=== PATIENT | female | born 1980 | race Caucasian/White ===

== ENCOUNTER → 2018-12-01 | Outpatient (CLI) | payer BC ==
--- NOTE | 2018-12-01 08:29 | MM ---
Reason for exam: screening (asymptomatic). Baseline mammogram. History: Family history of breast cancer in paternal grandmother at age 50 and breast cancer in maternal aunt at age 45. Took hormonal contraceptives for 3 years. Physical Findings: Nurse did not find any significant physical abnormalities on exam. MG 3D Screening Mammo W/Cad Bilateral CC and MLO view(s) were taken. The breast tissue is extremely dense which could obscure a lesion on mammography. There is a 3mm group of calcifications in the retroareolar left breast. ASSESSMENT: Incomplete: need additional imaging evaluation, BI-RAD 0 RECOMMENDATION: Special view mammogram of the left breast. [facility] will attempt to contact patient to return for supplemental views.
--- NOTE | 2018-12-02 11:15 | MM ---
Reason for exam: additional evaluation requested from abnormal screening. History: Family history of breast cancer in paternal grandmother at age 50 and breast cancer in maternal aunt at age 45. Took hormonal contraceptives for 3 years. Physical Findings: Breast exam preformed at baseline screening. MG 3D Work Up W/Cad LT CC with magnification, ML with magnification, and ML view(s) were taken of the left breast. The breast tissue is extremely dense which could obscure a lesion on mammography. There are only 3 round left retroareolar calcifications that appear within the skin surface on magnification ML view. These results were verbally communicated with the patient and result sheet given to the patient on 12/01/18. ASSESSMENT: Benign, BI-RAD 2 RECOMMENDATION: Routine screening mammogram of both breasts in 1 year.
== END | disposition home or self-care (01) ==
LOC: RADMAMWWP 06:52
PROVIDERS: ATTEND Obstetrics & Gynecology Obstetrics
DX: Z12.31 Encounter for screening mammogram for malignant neoplasm of breast (principal); R92.8 Other abnormal and inconclusive findings on diagnostic imaging of breast; Z80.3 Family history of malignant neoplasm of breast
CPT/HCPCS: 77061; 77063; 77065; 77067

== ENCOUNTER 2019-07-07 21:24 | Emergency (ER) | payer OTHER, BC ==
[2019-07-07 22:09] VITALS: BP 134/90; PULSE 60; RESP 17; TEMP 97.9
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
[2019-07-09 14:53] LABS: Hepatitis B Surface Antigen Non-Reactive
[2019-07-09 14:58] LABS: Hepatitis B Surface AB- Quant 98.9 mIU/mL
[2019-07-09 15:05] LABS: Hepatitis C IgG Antibody Non-Reactive
[2019-07-11 08:07] LABS: HIV 1 AB Non-Reactive; HIV 2 AB Non-Reactive; HIV AB P24 Non-Reactive; HIV P24 AG Non-Reactive
== END 2019-07-07 23:20 | disposition home or self-care (01) ==
LOC: EC 21:24
DX: Z77.21 Contact with and (suspected) exposure to potentially hazardous body fluids (principal); Z88.1 Allergy status to other antibiotic agents
CPT/HCPCS: 36415; 86706; 86803; 87340; 87390; 99283

== ENCOUNTER → 2019-12-29 | Outpatient (CLI) | payer BC ==
--- NOTE | 2020-01-01 11:44 | MM ---
Reason for exam: screening (asymptomatic). Last mammogram was performed 1 year and 1 month ago. History: Patient is nulliparous. Family history of breast cancer in paternal grandmother at age 50 and breast cancer in maternal aunt at age 45. Took hormonal contraceptives for 3 years. Physical Findings: A clinical breast exam by your physician is recommended on an annual basis and results should be correlated with mammographic findings. MG 3D Screening Mammo W/Cad Bilateral CC and MLO view(s) were taken. Prior study comparison: December 01, 2018, left breast MG 3d work up w/cad LT. December 01, 2018, bilateral MG 3d screening mammo w/cad. No suspicious abnormality in the right breast. Left upper outer quadrant focal asymmetry. ASSESSMENT: Incomplete: need additional imaging evaluation, BI-RAD 0 RECOMMENDATION: Special view mammogram of the left breast. If lesion persists on supplemental views, image directed ultrasound is recommended. [facility] will attempt to contact patient to return for supplemental views and ultrasound if indicated.
== END | disposition home or self-care (01) ==
LOC: RADMAMWWP 09:46
PROVIDERS: ATTEND Obstetrics & Gynecology Obstetrics
DX: Z12.31 Encounter for screening mammogram for malignant neoplasm of breast (principal); Z80.3 Family history of malignant neoplasm of breast
CPT/HCPCS: 77063; 77067

== ENCOUNTER → 2020-01-12 | Outpatient (CLI) | payer BC ==
--- NOTE | 2020-01-15 11:30 | MM ---
Reason for exam: additional evaluation requested from abnormal screening. Last mammogram was performed less than 1 month ago. History: Patient is nulliparous. Family history of breast cancer in paternal grandmother at age 50 and breast cancer in maternal aunt at age 45. Took hormonal contraceptives for 3 years. Physical Findings: Nurse did not find any significant physical abnormalities on exam. MG 3D Work Up W/Cad LT Spot compression CC, spot compression MLO, and LM view(s) were taken of the left breast. Prior study comparison: December 29, 2019, bilateral MG 3d screening mammo w/cad. December 01, 2018, left breast MG 3d work up w/cad LT. The breast tissue is heterogeneously dense. This may lower the sensitivity of mammography. Left upper outer quadrant 7mm mass persists as well as a more medial area of distortion (still within the lateral breast), 7.5cm from nipple. These results were verbally communicated with the patient and result sheet given to the patient on 01/12/20. ASSESSMENT: Incomplete: need additional imaging evaluation, BI-RAD 0 RECOMMENDATION: Ultrasound of the left breast. (lateral)
--- NOTE | 2020-01-15 11:35 | USB ---
Reason for exam: additional evaluation requested from abnormal screening. History: Patient is nulliparous. Family history of breast cancer in paternal grandmother at age 50 and breast cancer in maternal aunt at age 45. Took hormonal contraceptives for 3 years. US Breast Workup Limited LT Left limited breast ultrasound including focal area of concern, retroareolar and axilla demonstrates a 0.5 x 0.6 x 0.4cm oval, cystic lesion at 1 o'clock, a 0.8 x 0.3 x 0.3cm oval, complex, cystic cluster at 1 o'clock, a 0.4 x 0.4 x 0.3cm oval, cystic cluster at 1 o'clock, a 0.3 x 0.3 x 0.3cm oval, hypoechoic small complicated cyst with enhancement at 1 o'clock, a 0.6 x 0.3 x 0.2cm oval, cystic cluster at 2 o'clock and a 0.3 x 0.4 x 0.3cm oval, cystic lesion at 3 o'clock. All benign. These results were verbally communicated with the patient and result sheet given to the patient on 01/12/20. ASSESSMENT: Suspicious, BI-RAD 4 (on mammogram) RECOMMENDATION: Stereotactic core biopsy of the left breast. (3D Biopsy) 1-2 sites, re-evaluate day of biopsy. Called Dr. Erwin's office with mammographic findings. PRELIMINARY REPORT CALLED AND FAXED TO DR. ERWIN ON 01/15/20.
== END | disposition home or self-care (01) ==
LOC: RADMAMWWP 14:10
PROVIDERS: ATTEND Obstetrics & Gynecology Obstetrics
DX: R92.8 Other abnormal and inconclusive findings on diagnostic imaging of breast (principal)
CPT/HCPCS: 77061; 77065

== ENCOUNTER 2020-08-04 14:37 | Emergency (ER) | payer BC ==
[2020-08-04 14:42] VITALS: RESP 18
[2020-08-04] MEDS ORDERED: IBUPROFEN 600 MG TAB PO STA (15:08)
--- NOTE | 2020-08-04 15:18 | ED ---
General Adult HPI - General Chief complaint: Extremity Injury, Lower Stated complaint: foot injury from horse Time Seen by Provider: 08/04/20 14:56 Source: patient, RN notes reviewed, old records reviewed Mode of arrival: ambulatory Limitations: no limitations - History of Present Illness Initial comments: 39-year-old female patient with Edel chief complaint left foot injury. Patient reports that she was wearing sandals at 1500 pound horse stepped on her foot. Patient is having pain in her fifth metatarsal region. Denies any other acute complaints. Systemic: Pt denies fatigue, fever/chills, rash. Pt denies weakness, night sweats, weight loss. Neuro: Pt denies headache, visual disturbances, syncope or pre-syncope. HEENT: Pt denies ocular discharge or irritation, otalgia, rhinorrhea, pharyngitis or notable lymphadenopathy. Cardiopulmonary: Pt denies chest pain, SOB, heart palpitations, dyspnea on exertion. Abdominal/GI: Pt denies abdominal pain, n/v/d. : Pt denies dysuria, burning w/ urination, frequency/urgency. Denies new onset urinary or bowel incontinence. MSK: Pt denies loss of strength or function in extremities. Neuro: Pt denies new onset weakness, paresthesias. - Related Data Home Medications Medication Instructions Recorded Confirmed No Known Home Medications 09/29/14 07/07/19 Allergies Allergy/AdvReac Type Severity Reaction Status Date / Time cephalexin monohydrate Allergy Swelling Verified 08/04/20 14:42 [From Keflex] Review of Systems ROS Statement: Those systems with pertinent positive or pertinent negative responses have been documented in the HPI. ROS Other: All systems not noted in ROS Statement are negative. Past Medical History Past Medical History: No Reported History History of Any Multi-Drug Resistant Organisms: None Reported Past Surgical History: No Surgical Hx Reported Past Psychological History: No Psychological Hx Reported Smoking Status: Never smoker Past Alcohol Use History: Occasional Past Drug Use History: None Reported General Exam - General Exam Comments Initial Comments: Constitutional: NAD, AOX3, Pt has pleasant affect. HEENT: NC/AT, trachea midline, neck supple, no lymphadenopathy. External ears appear normal, without discharge. Mucous membranes moist. Eyes PERRLA, EOM intact. There is no scleral icterus. No pallor noted. Cardiopulmonary: RRR, no murmurs, rubs or gallops, no JVD noted. Lungs CTAB in anterior and posterior christianson. No peripheral edema. Neuro: CN II-XII grossly intact. No nuchal rigidity. MSK: No posterior calf tenderness bilaterally, homans sign negative bilaterally. Posterior tibialis and radial pulse +2 bilaterally. Sensation intact in upper and lower extremities. mild tenderness 4th/fifth metatarsal region right side. small ecchymoses noted. No midfoot tenderness. Neurovascularly intact. Full active ROM in upper and lower extremities. Limitations: no limitations Course Vital Signs 08/04/20 14:39 Temperature 98.6 F Pulse Rate 83 Respiratory 18 Rate Blood Pressure 132/94 O2 Sat by Pulse 100 Oximetry Medical Decision Making - Medical Decision Making 39-year-old female patient presents to ED for evaluation of right foot injury after a horse stepped on her briefly only for about a second. Patient is ambulatory without difficulty. Plain films are negative for acute pathology. Patient will be discharged with follow-up with primary care provider or any worsening symptoms. Disposition Clinical Impression: Foot sprain Disposition: HOME SELF-CARE Condition: Stable Instructions (If sedation given, give patient instructions): Foot Sprain (ED) Additional Instructions: Follow up with PCP tomorrow. You may bear weight as tolerated. If you are having a lot of discomfort I recommend using crutches and following up with PCP or orthopedic consult for re-evaluation. Is patient prescribed a controlled substance at d/c from ED?: No Referrals: Elli Domingo MD [Primary Care Provider] - 1-2 days Akin Reynolds MD [STAFF PHYSICIAN] - 1-2 days
--- NOTE | 2020-08-04 15:25 | XR ---
EXAMINATION TYPE: XR foot complete RT DATE OF EXAM: 08/04/2020 COMPARISON: NONE HISTORY: Pain TECHNIQUE: 3 views FINDINGS: There is plantar calcaneal spurring. Metatarsals are intact. I see no fracture nor dislocat ion. Joint spaces are normal. IMPRESSION: Calcaneal spurring. No fracture seen.
[2020-08-04] MEDS ORDERED: ACETAMINOPHEN TAB 325 MG TAB PO STA (16:01)
[2020-08-04] MEDS ORDERED: IBUPROFEN 600 MG STARTER PACK 4 TAB BTL PO STA (16:02)
[2020-08-04 16:39] VITALS: BP 117/84; PULSE 78; TEMP 98.2
== END 2020-08-04 16:38 | disposition home or self-care (01) ==
LOC: EC 14:37
DX: S93.602A Unspecified sprain of left foot, initial encounter (principal); S90.32XA Contusion of left foot, initial encounter; W55.12XA Struck by horse, initial encounter; Z88.1 Allergy status to other antibiotic agents
CPT/HCPCS: 99284

== ENCOUNTER → 2020-09-03 | Outpatient (CLI) | payer BC ==
--- NOTE | 2020-09-03 10:30 | USB ---
Reason for exam: additional evaluation requested from prior study. History: Patient is nulliparous. Family history of breast cancer in paternal grandmother at age 50 and breast cancer in maternal aunt at age 45. Took hormonal contraceptives for 3 years. Physical Findings: Nurse did not find any significant physical abnormalities on exam. US Breast Limited LT Left limited breast ultrasound including focal area of concern, retroareolar and axilla demonstrates a 0.8 x 0.4 x 0.6cm oval, cystic lesion at 2 o'clock and a 0.6 x 0.3 x 0.6cm oval, cystic cluster with thin septate at 3 o'clock. Multiple cysts/cystic areas. These results were verbally communicated with the patient and result sheet given to the patient on 09/03/20. ASSESSMENT: Benign, BI-RAD 2 RECOMMENDATION: Return to routine screening mammogram schedule for both breasts. Back on schedule for November 2020.
== END | disposition home or self-care (01) ==
LOC: RADUSWWP 09:31
PROVIDERS: ATTEND Surgery
DX: R92.8 Other abnormal and inconclusive findings on diagnostic imaging of breast (principal)

== ENCOUNTER 2020-12-07 20:21 | Emergency (ER) | payer BC, OTHER ==
[2020-12-07 20:26] VITALS: BP 142/86; PULSE 91; RESP 18; TEMP 98.7
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
--- NOTE | 2020-12-07 21:09 | XR ---
EXAMINATION TYPE: XR knee complete LT DATE OF EXAM: 12/07/2020 COMPARISON: NONE HISTORY: Neck pain. Knee pain TECHNIQUE: 3 views FINDINGS: I see no fracture nor dislocation. Joint spaces are normal. There is no sign of joint effus ion. IMPRESSION: Negative left knee exam.
--- NOTE | 2020-12-07 21:11 | XR ---
EXAMINATION TYPE: XR cervical spine comp DATE OF EXAM: 12/07/2020 COMPARISON: NONE HISTORY: Neck pain TECHNIQUE: 6 views FINDINGS: There is mild straightening. There is mild spurring at C5-6 and C6-7. Posterior elements ar e intact. There are no cervical ribs. The neural foramina are fairly well-maintained. Atlantoaxial fa cet joint is normal. IMPRESSION: Mild degenerative disc changes in the lower cervical spine. No fracture.
[2020-12-07] MEDS ORDERED: CYCLOBENZAPRINE 10MG STARTER 3 TAB BTL PO STA (21:14)
== END 2020-12-07 21:21 | disposition home or self-care (01) ==
LOC: EC 20:21
DX: S16.1XXA Strain of muscle, fascia and tendon at neck level, initial encounter (principal); S89.92XA Unspecified injury of left lower leg, initial encounter; Z88.1 Allergy status to other antibiotic agents; W22.8XXA Striking against or struck by other objects, initial encounter
CPT/HCPCS: 72050; 99283

== ENCOUNTER → 2021-03-12 | Outpatient (CLI) | payer BC ==
--- NOTE | 2021-03-12 11:42 | MM ---
Reason for exam: screening (asymptomatic). Last mammogram was performed 1 year and 2 months ago. History: Patient is nulliparous. Family history of breast cancer in paternal grandmother at age 50 and breast cancer in maternal aunt at age 45. Benign stereotactic core biopsy of the left breast, 2019. Took hormonal contraceptives for 3 years. Physical Findings: A clinical breast exam by your physician is recommended on an annual basis and results should be correlated with mammographic findings. MG 3D Screening Mammo W/Cad Bilateral CC and MLO view(s) were taken. Prior study comparison: December 29, 2019, bilateral MG 3d screening mammo w/cad. December 01, 2018, bilateral MG 3d screening mammo w/cad. The breast tissue is heterogeneously dense. This may lower the sensitivity of mammography. Previous mammotome biopsy in the left breast. There is no discrete abnormality. ASSESSMENT: Negative, BI-RAD 1 RECOMMENDATION: Routine screening mammogram of both breasts in 1 year.
== END | disposition home or self-care (01) ==
LOC: RADMAMWWP 08:17
PROVIDERS: ATTEND Obstetrics & Gynecology Obstetrics
DX: Z12.31 Encounter for screening mammogram for malignant neoplasm of breast (principal)
CPT/HCPCS: 77063; 77067

== ENCOUNTER → 2022-01-14 | Outpatient (CLI) | payer OTHER ==
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
== END | disposition home or self-care (01) ==
LOC: RADXRMAIN 15:10
PROVIDERS: ATTEND Emergency Medicine
DX: S61.253A Open bite of left middle finger without damage to nail, initial encounter (principal); W54.0XXA Bitten by dog, initial encounter

== ENCOUNTER → 2022-05-07 | Outpatient (CLI) | payer BC ==
--- NOTE | 2022-05-09 14:41 | MM ---
Reason for Exam: Screening (asymptomatic). Last mammogram was performed 1 year(s) and 2 month(s) ago. Patient History: Menarche at age 12. Patient has no children. Patient used Hormonal Contraceptives for 3 years. 2019, Benign Stereotactic Core Biopsy on the left side. Paternal grandmother had breast cancer, age 50. Maternal aunt had breast cancer, age 45. Last menstrual period: 04/02/2022 Risk Values: Korin 5 year model risk: 1.2%. NCI Lifetime model risk: 13.2%. Prior Study Comparison: 12/29/2019 Bilateral Screening Mammogram, [facility]. 01/12/2020 Left Diagnostic Mammogram, [facility]. 03/12/2021 Bilateral Screening Mammogram, [facility]. Tissue Density: The breast tissue is heterogeneously dense. This may lower the sensitivity of mammography. Findings: Analyzed By CAD. Oval nodularity central outer right cc view is more defined from recent prior but seems to be fluctuating from older prior. Underlying cyst is suspected. This can be reassessed at short interval follow-up. Microclip upper outer quadrant left breast from prior biopsy. Otherwise, no significant change from prior exams. Overall Assessment: Probably benign, BI-RAD 3 Management: Diagnostic Mammogram of the right breast in 6 months. 1. Six-month follow-up diagnostic right breast mammogram for fluctuating nodularity on the right CC view. 2. The patient should continue monthly self breast exams. 3. This exam should not preclude additional follow-up of suspicious palpable abnormalities. Electronically signed and approved by: Carol Arthur M.D. Radiologist
== END | disposition home or self-care (01) ==
LOC: RADMAMWWP 09:15
PROVIDERS: ATTEND Obstetrics & Gynecology Obstetrics
DX: Z12.31 Encounter for screening mammogram for malignant neoplasm of breast (principal); Z80.3 Family history of malignant neoplasm of breast
CPT/HCPCS: 77063; 77067

== ENCOUNTER 2023-10-27 09:30 | Day surgery (SDC) | payer BC ==
[2023-10-19 13:18] VITALS: BMI 28.3
--- NOTE | 2023-10-25 13:17 | P.HPOR ---
History of Present Illness H&P Date: 10/25/23 Subjective: This is a 42 year old female that presents today for initial evaluation regarding a 5 year history of progressively increasing right hand pain and a volar soft tissue mass present in the palm of her hand. She states the mass has fluctuated in size over the past several years and has been bothersome especially when putting direct pressure on the palm. 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 She is right-hand dominant. 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 It is worse at nighttime. Physical Examination: RUE: AIN/PIN/Radial/Ulnar/Median motor intact. Radial/Ulnar/Median SILT. 2+/4 Radial/Ulnar pulses palpated. 5/5 APB, 5/5 FDI. Negative Finkelsteins, negative CMC grind, positive Durkan's compression. 3x2 cm round mobile mass in palm at level of carpal tunnel. Able to make a full fist. Imaging: X-Rays of the right and 3 view taken in office today demonstrate no abnormality Impression: 1.) Right hand volar soft tissue mass 2.) Righ carpal tunnel syndrome Plan: Diagnosis and treatment options were discussed with the patient. She would like to pursue surgical intervention since the mass has been present for several years now. She is scheduled for a right hand soft tissue mass excision and right open carpal tunnel release. Risks and benefits of surgery including bleeding, infection, damage to surrounding tissue, need for further surgery, residual numbness were discussed and the patient wished to go forward with surgery. The patient was agreeable with this plan. I anticipate 3 weeks off of work post operatively, this can be extended if needed. -Hever Espinosa DO Orthopedic Hand/Upper Extremity Surgeon Past Medical History Past Medical History: No Reported History Additional Past Medical History / Comment(s): CARPAL TUNNEL RIGHT/MASS ON HAND History of Any Multi-Drug Resistant Organisms: None Reported Past Surgical History: No Surgical Hx Reported Past Anesthesia/Blood Transfusion Reactions: No Reported Reaction Smoking Status: Never smoker - Past Family History Mother Family Medical History: No Reported History Medications and Allergies Home Medications Medication Instructions Recorded Confirmed Type No Known Home Medications 10/19/23 10/19/23 History Allergies Allergy/AdvReac Type Severity Reaction Status Date / Time cephalexin monohydrate Allergy Swelling Verified 10/19/23 12:56 [From Keflex] Physical Examination Osteopathic Statement: *. No significant issues noted on an osteopathic structural exam other than those noted in the History and Physical/Consult.
[~2023-10-27 09:30] MED LIST: HYDROmorphone 0.5 MG/0.5 ML SYRINGE IVP PRN; LACTATED RINGERS 1,000 ML IV SCH; LIDOCAINE 1% (10MG/ML) FOR IV START INTRADERMA PRN; ONDANSETRON 4 MG/2 ML VIAL IVP ONE; Pre Op ABX Message 1 EACH MISC MISCELLANE ONE
[2023-10-27 10:06] VITALS: TEMP 97.3
[2023-10-27] MEDS ORDERED: fentaNYL (PF) 50 MCG/ML 2 ML AMP ONE (10:13)
[2023-10-27] MEDS ORDERED: MIDAZOLAM 2 MG/2 ML VIAL ONE (10:13)
[2023-10-27] MEDS ORDERED: PROPOFOL 10 MG/ML 20 ML VIAL IV ONE (10:13)
[2023-10-27] MEDS ORDERED: LIDOCAINE 2% INJ 20 MG/ML SQ ONE ×3 (10:16→10:23)
[2023-10-27] MEDS ORDERED: BUPIVACAINE (PF) 0.5% 30 ML VIAL SQ ONE ×3 (10:16→10:23)
--- NOTE | 2023-10-27 11:02 | P.OP ---
Date of Procedure: 10/27/23 Preoperative Diagnosis: 1.) Right carpal tunnel syndrome 2.) Right volar soft tissue mass Postoperative Diagnosis: 1.) Right carpal tunnel syndrome 2.) Right volar soft tissue mass Procedure(s) Performed: 1.) Right open carpal tunnel release 2.) Right volar soft tissue mass excision Anesthesia: MAC Surgeon: Hever Espinosa Adult Neurologist #1: Marito Hussein Estimated Blood Loss (ml): 0 Pathology: other (Wrist soft tissue mass) Condition: stable Disposition: PACU Description of Procedure: This is a 42 year old female who presents today for a right open carpal tunnel release and right volar soft tissue mass excision after having failed conservative treatment in the past. Risks and benefits of surgery were discussed with the patient including bleeding, damage to surrounding tissue, infection, need for further surgery as well as risks of anesthesia including pulmonary embolism and even and the patient wished to proceed with surgical intervention. The patients was seen in the pre-operative area by myself. Consent and H&P were completed and updated. The correct extremity was marked in the pre- operative area by myself and all other questions were answered. Operative Narrative: The patient was brought to the operating room by the department of anesthesia. They remained on the portable stretcher and a rolling hand table was brought to the side of the operative extremity. Pre-operative time out was performed indicating the correct patient, procedure and laterality. All in the room agreed. The patient was then drifted off to sleep by the department of anesthesia. MAC anesthesia was utilized and a 50:50 mixture of 1% Lidocaine and 0.5% bupivacaine was injected into the subcutaneous tissues of the palmar skin, 10ccs total. A nonsterile tourniquet was then applied to the operative extremity and the left upper extremity was then prepped and draped in normal sterile fashion. The operative extremity was the exsanguinated with an esmarch bandage and the tourniquet was inflated to 250mmHg. 15 blade scalpel was utilized to make a longitudinal incision on the palmar skin in line with the radial boarder of the ring finger to a point distally at the intersection of Kaplans cardinal line. Heiss retractor was utilized to spread subcutaneous tissue. There was a round 2x3cm mobile white soft tissue mass sitting in the subcutaneous tissue just superficial to the palmar fascia. This was excised in it's entirety and sent for pathology. Scalpel was used to cut through the superficial palmar fascia to reveal the transverse carpal ligament. The transverse carpal ligament was then sharply incised in line with the incision and tenotomy scissors were used to spread distally and the distal portion of the transverse carpal ligament was released using tenotomy scissors from distal to proximal under direct visualization. The median nerve was directly visualized and was intact. Proximal fascia of the distal forearm was also released under direct visualization taking care to preserve the palmar cutaneous branch of the median nerve. The wound was then closed with 4-0 nylon suture in a horizontal mattress fashion. Sterile dressing was applied consisting of adaptic, 4x4s, webril, and an rosalio bandage. Tourniquet was let down and the hand immediately was well perfused. The patient was then woken by the department of anesthesia and transferred to PACU in stable condition. Hever Espinosa D.O. Orthopedic Hand/Upper Extremity Surgeon
[2023-10-27 11:06] VITALS: BP 117/79; PULSE 58; RESP 18
== END 2023-10-27 11:17 | disposition home or self-care (01) ==
LOC: OR 09:30
PROVIDERS: ATTEND Orthopaedic Surgery Hand Surgery
DX: G56.01 Carpal tunnel syndrome, right upper limb (principal); Z88.1 Allergy status to other antibiotic agents; Z79.899 Other long term (current) drug therapy
CPT/HCPCS: 81025; 64721; J2001; J2250; J2405; J3010; J2704; J0665

== ENCOUNTER 2024-07-07 23:58 | Emergency (ER) | payer BC ==
--- NOTE | 2024-08-16 08:07 | XR ---
Patient Zoe Ewing ID [id number] Order # EXAMINATION TYPE: XR hand complete RT DATE OF EXAM: 07/16/2024 COMPARISON: No comparison available on downtime PACS. HISTORY: Altercation, pain TECHNIQUE: 3 view right hand FINDINGS: No acute fractures or dislocations evident. Joint spaces are preserved. Soft tissues are no rmal. Follow up exams can be performed 7-10 days from acute trauma for continued pain. IMPRESSION: 1. No acute osseous abnormality right hand.
== END 2024-07-08 01:46 | disposition home or self-care (01) ==
LOC: EC 23:58
DX: S60.221A Contusion of right hand, initial encounter (principal); X50.0XXA Overexertion from strenuous movement or load, initial encounter
CPT/HCPCS: 99283

== ENCOUNTER → 2025-04-02 | Outpatient (CLI) | payer BC ==
--- NOTE | 2025-04-02 15:10 | MM ---
Reason for Exam: Screening (asymptomatic). Last mammogram was performed 2 year(s) and 11 month(s) ago. Patient History: Menarche at age 12. Patient has no children. Premenopausal. Patient used Hormonal Contraceptives for 3 years. 2018, US breast needle core addl RT on the Right side. 2019, Benign Stereotactic Core Biopsy on the left side. Paternal grandmother had breast cancer, age 50. Maternal aunt had breast cancer, age 45. Risk Values: Korin 5 year model risk: 2.4%. NCI Lifetime model risk: 16.4%. Prior Study Comparison: 03/12/2021 Bilateral Screening Mammogram, [facility]. 05/07/2022 Bilateral MG 3D screening mammo w/cad, [facility]. 02/02/2023 Right MG 3D diag mammo w/cad RT, [facility]. Tissue Density: The breasts are heterogeneously dense, which may obscure small masses. Findings: Analyzed By CAD. Right breast biopsy clip. Right breast: There is no suspicious group of microcalcifications or new suspicious mass. Left breast: There is no suspicious group of microcalcifications or new suspicious mass. Overall Assessment: Benign, BI-RAD 2 Management: Screening Mammogram of both breasts in [address] [facility] will attempt to contact patient to return for supplemental views and ultrasound if indicated. Patient should continue monthly self-breast exams. A clinical breast exam by your physician is recommended on an annual basis. This exam should not preclude additional follow-up of suspicious palpable abnormalities. Note on Korin scores and lifetime risk: 1. A Korin score greater than 3% is considered moderate risk. If this is the case, consider specialist referral to assess eligibility for a risk reducing agent. 2. If overall lifetime risk for the development of breast cancer is 20% or higher, the patient may qualify for future screening with alternating mammogram and breast MRI. [facility], , 04/02/2025 3:01 PM. Electronically signed and approved by: Salomón Castillo DO
== END | disposition home or self-care (01) ==
LOC: RADMAMWWP 14:30
PROVIDERS: ATTEND Obstetrics & Gynecology Obstetrics
DX: Z12.31 Encounter for screening mammogram for malignant neoplasm of breast (principal); R92.333 Mammographic heterogeneous density, bilateral breasts; Z80.3 Family history of malignant neoplasm of breast; Z92.0 Personal history of contraception
CPT/HCPCS: 77063; 77067